=== PATIENT | female | born 1990 | race Asian ===

== ENCOUNTER → 2019-01-21 15:56 | Emergency (ER) | payer OTHER ==
--- NOTE | 2019-01-21 15:56 | NUR ---
LWBS PRIOR TO TRIAGE
== END | disposition left against medical advice (07) ==
LOC: SED 15:56
DX: M79.606 Pain in leg, unspecified (principal); Z91.19 Patient's noncompliance with other medical treatment and regimen; Z53.21 Procedure and treatment not carried out due to patient leaving prior to being seen by health care provider